=== PATIENT | female | born 1950 | race Caucasian/White ===

== ENCOUNTER 2022-01-17 11:52 | Outpatient (CLI) | payer MEDICARE, BC | END 2022-01-17 11:53 | disposition home or self-care (01) | LOC: CSHULT 11:52 | PROVIDERS: ATTEND Internal Medicine Cardiovascular Disease | DX: R60.0 Localized edema (principal); M79.9 Soft tissue disorder, unspecified | CPT/HCPCS: 76882; 93923 ==